=== PATIENT | male | born 1950 | race Caucasian/White ===

== ENCOUNTER → 2020-09-13 | Outpatient (CLI) | payer MEDICARE, OTHER ==
[~2020-09-13] MED LIST: ADVIL200 MG PO; ALLERGY RELIEF10 M1 PO; DONEPEZIL HCL10 MG PO; ECOTRIN81 MG PO; FISH OIL 1,2001 EAC7 PO; LISINOPRIL20 MG PO; NITROGLYCERIN0.4 MG SL; PEPCID AC20 MG PO; PLETAL 100 MG100 MG PO; VENTOLIN HFA 66.7 GM INH
[2020-09-13 12:41] LABS: RED BLOOD COUNT 5.22 M/UL (4.20-5.50); WHITE BLOOD COUNT 6.4 K/UL (4.5-11.0)
== END ==
LOC: OPSV2 11:46
PROVIDERS: Surgery
DX: Z01.818 Encounter for other preprocedural examination (principal); E11.9 Type 2 diabetes mellitus without complications
CPT/HCPCS: 36415; 71046; 80053; 81001; 85025; 85610; 85730; 86850; 86900; 86901; 93005

== ENCOUNTER → 2020-09-14 | Day surgery (SDC) | payer MEDICARE, OTHER | END | disposition home or self-care (01) | LOC: OR 05:40 | DX: I74.09 Other arterial embolism and thrombosis of abdominal aorta (principal); I74.5 Embolism and thrombosis of iliac artery; E11.9 Type 2 diabetes mellitus without complications; I10 Essential (primary) hypertension; E78.5 Hyperlipidemia, unspecified; I25.10 Atherosclerotic heart disease of native coronary artery without angina pectoris; J44.9 Chronic obstructive pulmonary disease, unspecified; G47.30 Sleep apnea, unspecified; M19.90 Unspecified osteoarthritis, unspecified site; E66.01 Morbid (severe) obesity due to excess calories; Z86.73 Personal history of transient ischemic attack (TIA), and cerebral infarction without residual deficits; Z68.37 Body mass index [BMI] 37.0-37.9, adult; Z87.891 Personal history of nicotine dependence; Z95.1 Presence of aortocoronary bypass graft; Z79.82 Long term (current) use of aspirin; Z79.899 Other long term (current) drug therapy | CPT/HCPCS: 75630; 76000; C1769; J0690; J1644; J2001; J2405; J2704; J2720; J7030; J7040; J7050; J7120; Q9962 ==